=== PATIENT | female | born 1970 | race Caucasian/White ===

== ENCOUNTER 2017-07-16 19:22 | Emergency (ER) | payer OTHER ==
[~2017-07-16] VITALS: Ht 170.2 cm; Wt 81.7 kg
[2017-07-16] MEDS ORDERED: MACROBID 100 M100 M2 PO (19:35)
[2017-07-16 20:24] LABS: HEMATOCRIT 43.2 % (37.0-47.0); HEMOGLOBIN 14.6 gm/dL (12.0-15.0); MCH 30.2 pg (26.0-34.0); MCHC 33.7 g/dL (28.0-37.0); MCV 89.8 fL (80.0-100.0); MPV 9.4 fl. (7.2-11.1); NUCLEATED RBCS 0 /100WBC; PLATELET COUNT* 210 thou/uL (150-400); RBC 4.81 mil/uL (4.20-5.00); RDW-CV 13.7 % (10.5-14.5); URINE BILIRUBIN NEGATIVE (Negative); URINE BLOOD TRACE (Negative); URINE CLARITY CLEAR; URINE COLOR YELLOW; URINE GLUCOSE-RANDOM TRACE (Negative); URINE KETONES NEGATIVE (Negative); URINE LEUKOCYTES-REFLEX NEGATIVE (Negative); URINE NITRITE-REFLEX NEGATIVE (Negative); URINE PROTEIN NEGATIVE (Negative); URINE SPECIFIC GRAVITY <= 1.005 (1.005-1.030); URINE UROBILINOGEN 0.2 E.U./dl (0.2-1.0); WBC 16.4 thou/uL (4.0-11.0)
[2017-07-16 20:42] LABS: CALCIUM 8.6 mg/dL (8.5-10.1); CREATININE 1.2 mg/dL (0.6-1.3); POTASSIUM 3.7 mmol/L (3.5-5.1)
[2017-07-16 20:46] LABS: ALBUMIN 3.6 g/dL (3.4-5.0); TOTAL BILIRUBIN 0.5 mg/dL (<0.1-1.0); TOTAL PROTEIN 7.3 g/dL (6.4-8.2)
[2017-07-16] MEDS ORDERED: PREDNISONE50 MG PO (21:24)
[2017-07-16] MEDS ORDERED: PROAIR HFA8.5 GM INH (21:24)
[2017-07-16] MEDS ORDERED: LEVAQUIN 750 M750 MG PO (21:24)
[2017-07-16] MEDS ORDERED: ROBITUSSIN100 MG/53 PO (21:24)
[2017-07-16 21:26] LABS: ABSOLUTE BASOPHILS 0.2 thou/uL (0.0-0.2); ABSOLUTE EOSINOPHILS 0.2 thou/uL (0.0-0.7); ABSOLUTE LYMPHOCYTES 0.7 thou/uL (0.8-5.3); ABSOLUTE MONOCYTES 0.3 thou/uL (0.0-1.2); ABSOLUTE NEUTROPHILS 15.1 thou/uL (1.6-8.1)
[2017-07-16 21:26] LABS: INFLUENZA A ANTIGEN None Detected (None Detect); INFLUENZA B ANTIGEN None Detected (None Detect)
[2017-07-16 21:27] LABS: MACROCYTES Occasional; PLATELET ESTIMATE ADEQUATE
[2017-07-16 23:00] VITALS: BP 123/53
== END 2017-07-16 23:01 | disposition still patient (30) ==
LOC: M.ERS 19:22
PROVIDERS: Nurse Practitioner Family
DX: J18.9 Pneumonia, unspecified organism (principal); F17.200 Nicotine dependence, unspecified, uncomplicated; Z88.0 Allergy status to penicillin